=== PATIENT | female | born 1985 | race Caucasian/White ===

== ENCOUNTER → 2017-10-21 13:49 | Outpatient (CLI) | payer OTHER, SELFPAY ==
[2017-10-21 15:17] LABS: Hemoglobin A1c 4.5 % (4.2-6.3)
[2017-10-21 15:19] LABS: Follicle Stimulating Hormone 5.6 mIU/mL; Free T3 2.8 pg/mL (2.18-3.98); Luteinizing Hormone 11.6 mIU/mL; Prolactin 2.4 ng/mL; Thyroid Stim Hormone (TSH) 1.64 uIU/mL (0.358-3.74)
== END ==
PROVIDERS: Visit Provider Obstetrics & Gynecology
DX: N92.5 Other specified irregular menstruation (principal)
CPT/HCPCS: 83001; 83002; 83036; 84146; 84439; 84443; 84481

== ENCOUNTER → 2017-11-01 13:50 | Outpatient (CLI) | payer OTHER, SELFPAY ==
[2017-11-08 13:56] LABS: HPV Reflexed? NOT INDICATED
== END ==
PROVIDERS: Visit Provider Obstetrics & Gynecology
DX: Z12.4 Encounter for screening for malignant neoplasm of cervix (principal); Z12.72 Encounter for screening for malignant neoplasm of vagina
CPT/HCPCS: 88175; G0145

== ENCOUNTER → 2017-11-12 20:53 | Outpatient (CLI) | payer OTHER, SELFPAY ==
[2017-11-13 02:21] LABS: Follicle Stimulating Hormone 5.4 mIU/mL
== END ==
PROVIDERS: Visit Provider Obstetrics & Gynecology
DX: N92.5 Other specified irregular menstruation (principal)
CPT/HCPCS: 36415; 83001; 83002

== ENCOUNTER 2018-08-24 09:28 | Emergency (ER) | payer OTHER, SELFPAY ==
[2018-08-24 09:30] VITALS: BP 108/65; PULSE 67; RESP 16; TEMP 36.6; O2SAT 100; BMI 25.7
--- NOTE | 2018-08-24 09:31 | CT_ITS ---
STUDY: CT BRAIN WITHOUT CONTRAST REASON FOR EXAM: Female, 32 years old. Headaches. Dizziness and nausea. RADIATION DOSAGE (If Supplied By Facility): CTDIvol = ( 44.99 ) mGy, DLP = ( 714.56 ) mGycm TECHNIQUE: Transaxial CT imaging of the brain was performed without administration of intravenous contrast material. Individualized dose optimization techniques were used for this CT. COMPARISON: No relevant priors. FINDINGS: Normal soft tissue structures. Normal calvarium. Normal size ventricles and extra-axial spaces for the patient's age. Normal white matter tracts of the cerebral hemispheres. Normal basal ganglia and thalami. Normal brainstem. Normal cerebellum. There is no intracranial hemorrhage. There are no findings of an acute ischemic infarction. Normal visualized paranasal sinuses. CT/Brain/Head without Contrast IMPRESSION: Normal unenhanced CT scan of the brain. Electronically Signed: Sandeep Joaquin, at 10:30 EDT , Service support ,
--- NOTE | 2018-08-24 09:32 | ED.VISSUMM ---
- ER Visit Summary Date of Service: 08/24/18 Chief Complaint: Headache History of Present Illness: The patient is a 32 F started having a headache yesterday. She has a throbbing on the left side of her head. It does not radiate. She has had multiple episodes of vomiting at home. She did have some visual changes. No trauma or falls. She is on no blood thinning medication. She does not have a history of migraines. She tried Tylenol and ibuprofen without any relief. 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 It is supposed to be monitored every 3 years and this year was her year to have a another MRI. Physical Examination: Vital signs reviewed. HEENT exam unremarkable. Heart is regular rate and rhythm without murmurs. Lungs are clear to auscultation. Abdomen is soft and nontender. Extremities reveal no edema. Skin exam normal. Neurologic exam normal. Test Results: CAT scan of the head is normal Emergency Department Course and Treatment: Patient was given Compazine and Benadryl. She feels much better after this. I do not see any evidence of any intracranial issues, especially with this history of a brain lesion. Patient will be discharged to take home medications. I will give her a neurologist follow-up Treatment Plan: [] Disposition: Discharge Impression: Headache This note was generated with [employer] dictation software. It may contain incorrect words, spelling, and punctuation that were not noted in review of the chart prior to signing ED Disposition - Plan for ED Patient: Referrals: Derek Dunbar MD [STAFF PHYSICIAN] -
[2018-08-24] MEDS: 0.9% Normal Saline 1,000 ML 999 ML IV (09:47)
[2018-08-24] MEDS: proCHLORPERazine 10 MG/2 ML Vial IV (09:47)
[2018-08-24] MEDS: DiphenhydrAMINE 50 MG/ML Syringe 25 MG IV (09:48)
--- NOTE | 2018-08-24 10:47 | ED.DEP ---
ED Disposition - Plan for ED Patient: Disposition: Home or Assisted Living Instructions: ED Cephalgia Unspecified Referrals: Griffin Euceda MD [STAFF PHYSICIAN] -
== END 2018-08-24 11:17 | disposition home or self-care (01) ==
PROVIDERS: Emergency Provider Emergency Medicine
DX: R51 Headache (principal); J45.909 Unspecified asthma, uncomplicated
CPT/HCPCS: 70450; 96361; 96374; 96375; 99284; J7030; A4216

== ENCOUNTER → 2020-03-27 | Outpatient (CLI) | payer OTHER, SELFPAY ==
[2020-04-01 22:19] LABS: HPV Reflexed? NOT INDICATED
== END | disposition home or self-care (01) ==
PROVIDERS: Visit Provider Obstetrics & Gynecology
DX: Z12.4 Encounter for screening for malignant neoplasm of cervix (principal)
CPT/HCPCS: 88175; G0145

== ENCOUNTER → 2021-11-10 | Outpatient (CLI) | payer OTHER, SELFPAY ==
[2021-11-12 18:55] LABS: HPV Reflexed? NOT INDICATED
== END | disposition home or self-care (01) ==
LOC: LABSPEC 10:00
PROVIDERS: Visit Provider Obstetrics & Gynecology
DX: Z12.4 Encounter for screening for malignant neoplasm of cervix (principal)
CPT/HCPCS: 88175; G0145